=== PATIENT | female | born 1980 | race Caucasian/White ===

== ENCOUNTER 2016-10-16 08:50 | Inpatient (IN) ==
[2016-12-14] MEDS ORDERED: BUPIVACAINE 0.5%/EPI 1:200,000 INJ 30ml SDV ID ONE (09:57)
[2016-12-14] MEDS ORDERED: BUPIVACAINE 0.5%/EPI 1:200,000 INJ 30ml SDV ONE (09:59)
--- OUTSIDE RECORDS SUMMARY | 2016-12-14 10:14 | External Medical Summary | Referral Summary ---
:1980 Author Organization [facility], [facility] Care Address [address] [place] [address] [place] [id number] Care Team Providers Name Role Phone Wilian Perez Primary Care Physician Encounter VC Date(s): 01/23/15 - 01/23/15 [facility], [address] [place] [phone] Discharge Diagnosis: Cerumen impaction Discharge Diagnosis: Acne rosacea Discharge Disposition: 01-Home or Self Care Attending Physician: Donavan Song MD Admitting Physician: Donavan Song MD Vital Signs Most recent to oldest [Reference Range]: 1 Temperature Tympanic [36.6-38.1 degC] 35.9 degC *LOW* (01/23/15 8:20 AM) Peripheral Pulse Rate [60-100 bpm] 92 bpm (01/23/15 8:20 AM) Blood Pressure [90-140/60-90 mmHg] 128/72 mmHg (01/23/15 8:20 AM) Problem List Condition Effective Dates Status Health Status Informant Obesity(Confirmed) Active patient Allergies, Adverse Reactions, Alerts No data available for this section Medications MetroCream 0.75% topical cream 1 jaci, Topical, BID, # 45 g, 0 Refill(s), Pharmacy: [facility] [id number] Start Date: 01/23/15 Status: Orderedphentermine 15 mg oral capsule mg caps, Oral, Daily, 0 Refill(s) Start Date: 01/23/15 Status: Ordered Results No data available for this section Immunizations No data available for this section Procedures No data available for this section Social History Social History Type Response Smoking Status Never smoker Assessment and Plan Extracted from: Title: Ambulatory Patient Education Author: Donavan Song MD Date: ENT Cerumen Impaction A cerumen impaction is when the wax in your ear forms a plug. This plug usually causes reduced hearing. Sometimes it also causes an earache or dizziness. Removing a cerumen impaction can be difficult an d painful. The wax sticks to the ear canal. The canal is sensitive and bleeds easily. If you try to remove a heavy wax buildup with a cotton tipped swab, you may push it in further. Irrigation with water, suction, and small ear curettes may be used to clear out the wax. If the impaction is fixed to the skin in the ear canal, ear drops may be needed for a few days to loosen the wax. People who build up a lot of wax frequently can use ear wax removal products available in your local drugstore. SEEK MEDICAL CARE IF: You develop an earache, increased hearing loss, or marked dizziness. Document Released: 04/05/2005 Document Revised: 05/20/2012 Document Reviewed: 05/26/2010 ExitCare Patient Information 2015 [email or web address]. This information is not intended to replace advice given to you by your health care provider. Make sure you discuss any questions you have with your health care provider. Follow Up With: Where: When: Wilian Perez Within 3 to 5 days, only if needed Comments: Extracted from: Title: Office Visit Note Author: Donavan Song MD Date: 01/23/15 Assessment/Plan Acne rosacea She will be given a refill on her MetroCream 0.75 percent applied twice daily as needed. Cerumen impaction This will be lavaged out today. Orders: metroNIDAZOLE topical, 1 jaci, Topical, BID, # 45 g, 0 Refill(s), Pharmacy: [facility] [id number]
--- OUTSIDE RECORDS SUMMARY | 2016-12-14 10:14 | External Medical Summary | Continuity of Care Document ---
:1980 Author Organization [facility] Allergies Active Description Code Type Severity Reaction Onset Reported/ Identified Relationship Clinical to Patient Status Yes No Known 04190 3 N/A N/A Drug 0 Allergies Medications Medication Packaging Start Date Stop Date Route Dosage Sig Dose Pack 06/09/2015 07/06/2015 AMETHIA take 1 by Oral route every day Tablet 07/07/2015 07/31/2015 CLOMIPHENE CITRATE take 1 tablet by ORAL route every day days 3-7 of cycle Tablet 09/14/2015 CLOMIPHENE CITRATE take 1 tablet by ORAL route every day days 3-7 of cycle Problems Date Dx Coded Attending Type Code Diagnosis Diagnosed By 06/14/2015 Katelin Burgos N92.6 Irregular Menses Procedures Results Encounters ACCT No. Visit Discharge Status Pt. Type Provider Facility Loc./Unit Complaint Date/Time [id number] 03/14/2016 03/14/2016 [facility], 08:14:00 23:59:59 Tanya Moe [id number] 09/14/2015 09/14/2015 [facility], 09:27:00 23:59:59 Katelin L [id number] 08/13/2015 08/13/2015 [facility] Outpatient [facility], 14:54:00 23:59:59 Katelin L [id number] 07/19/2015 07/19/2015 [facility] Outpatient [facility], 08:28:00 23:59:59 Katelin L [id number] 07/07/2015 07/07/2015 [facility] Outpatient [facility], 08:28:00 23:59:59 Katelin L [id number] 07/06/2015 07/06/2015 [facility] Outpatient [facility], 15:25:00 23:59:59 Katelin L [id number] 06/14/2015 06/14/2015 [facility] Outpatient [facility], 11:41:00 23:59:59 Katelin L [id number] 06/09/2015 06/09/2015 [facility] Outpatient [facility], 09:55:00 23:59:59 Tanya Moe [id number] 06/03/2015 06/03/2015 CLS Outpatient [facility], 11:26:00 23:59:59 Katelin Phelps [id number] 01/18/2015 01/18/2015 CLS Outpatient Lexi, 10:05:00 23:59:59 Mia Castillo
--- OUTSIDE RECORDS SUMMARY | 2016-12-14 10:14 | External Medical Summary | Referral Summary ---
:1980 Author Organization [facility], [facility]mediate Care Address [address] [place] [address] [place] [address] Care Team Providers Name Role Phone Wilian Perez Primary Care Physician Encounter VC Date(s): 05/27/15 - 05/27/15 [facility], [address] [place] [phone] [place] Discharge Disposition: 01-Home or Self Care Attending Physician: Devonte Merlos MD Admitting Physician: Devonte Merlos MD Vital Signs Most recent to oldest [Reference Range]: 1 Temperature Tympanic [36.6-38.1 degC] 36.5 degC *LOW* (05/27/15 5:30 PM) Peripheral Pulse Rate [60-100 bpm] 90 bpm (05/27/15 5:30 PM) Blood Pressure [90-140/60-90 mmHg] 124/88 mmHg (05/27/15 5:30 PM) SpO2 97 % (05/27/15 5:30 PM) Problem List Condition Effective Dates Status Health Status Informant Obesity(Confirmed) Active patient Allergies, Adverse Reactions, Alerts No Known Allergies Medications MetroCream 0.75% topical cream 1 jaci, Topical, BID, # 45 g, 0 Refill(s), Pharmacy: [facility] [id number] Start Date: 01/23/15 Status: Ordered Results No data available for this section Immunizations No data available for this section Procedures No data available for this section Social History Social History Type Response Smoking Status Never smoker Assessment and Plan Extracted from: Title: Ambulatory Patient Education Author: Devonte Merlos MD Date: 05/27/15 Family Medicine Pharyngitis Pharyngitis is redness, pain, and swelling (inflammation) of your pharynx. CAUSES Pharyngitis is usually caused by infection. Most of the time, these infections are from viruses (viral) and are part of a cold. However, sometimes pharyngitis is caused by bacteria (bacterial). Pharyngi tis can also be caused by allergies. Viral pharyngitis may be spread from person to person by coughing, sneezing, and personal items or utensils (cups, forks, spoons, toothbrushes). Bacterial pharyngiti s may be spread from person to person by more intimate contact, such as kissing. SIGNS AND SYMPTOMS Symptoms of pharyngitis include: Sore throat. Tiredness (fatigue). Low-grade fever. Headache. Joint pain and muscle aches. Skin rashes. Swollen lymph nodes. Plaque-like film on throat or tonsils (often seen with bacterial pharyngitis). DIAGNOSIS Your health care provider will ask you questions about your illness and your symptoms. Your medical history, along with a physical exam, is often all that is needed to diagnose pharyngitis. Sometimes, a rapid strep test is done. Other lab tests may also be done, depending on the suspected cause. TREATMENT Viral pharyngitis will usually get better in 34 days without the use of medicine. Bacterial pharyngitis is treated with medicines that kill germs ( antibiotics). HOME CARE INSTRUCTIONS Drink enough water and fluids to keep your urine clear or pale yellow. Only take [id number] or prescription medicines as directed by your health care provider: If you are prescribed antibiotics, make sure you finish them even if you start to feel better. Do not take aspirin. Get lots of rest. Gargle with 8 oz of salt water ( tsp of salt per 1 qt of water) as often as every 12 hours to soothe your throat. Throat lozenges (if you are not at risk for choking) or sprays may be used to soothe your throat. SEEK MEDICAL CARE IF: You have large, tender lumps in your neck. You have a rash. You cough up green, yellow-brown, or bloody spit. SEEK IMMEDIATE MEDICAL CARE IF: Your neck becomes stiff. You drool or are unable to swallow liquids. You vomit or are unable to keep medicines or liquids down. You have severe pain that does not go away with the use of recommended medicines. You have trouble breathing (not caused by a stuffy nose). MAKE SURE YOU: Understand these instructions. Will watch your condition. Will get help right away if you are not doing well or get worse. This information is not intended to replace advice given to you by your health care provider. Make sure you discuss any questions you have with your health care provider. Document Released: 02/26/2006 Document Revised: 12/17/2013 Document Reviewed: 11/03/2013 [facility] Patient Information 2015 [employer] [facility]. No follow up information was provided. Extracted from: Title: viral sinusitis, pharyngitis Author: Devonte Merlos MD Date: 05/27/15 Impression and Plan Diagnosis Acute pansinusitis (FKW97-AN J01.40, Working, Medical). Acute pharyngitis (NPE85-RT J02.9, Working, Medical). Plan: 1) Rest and humidity are the main treatment. 2) May use OTC meds as needed for comfort. 3) Followup as needed. 4) No antibiotics are needed for this viral illness.. Orders Orders (Selected) Outpatient Orders Ordered Office Visit Level 3 Est 84693: . Dx/Order Association Plan: Diagnosis: Acute pansinusitis Comment: Ordered: Office Visit Level 3 Est 32690; 05/27/15 17:43:00 CDT, Acute pansinusitis | Acute pharyngitis Diagnosis: Acute pharyngitis Comment: Ordered: Office Visit Level 3 Est 50562; 05/27/15 17:43:00 CDT, Acute pansinusitis | Acute pharyngitis End of Orders ."
[2016-12-14 10:16] VITALS: BMI 33.8
[2016-12-14] MEDS: LR 1,000 ML IV SCH ×2 (10:35→15:26)
[2016-12-14] MEDS ORDERED: NS 1,000 ML IV SCH ×2 (10:45→18:46)
[2016-12-14] MEDS ORDERED: FentaNYL 250 MCG/5 ML INJECTION ONE (11:47)
[2016-12-14] MEDS ORDERED: ROCURONIUM 50 MG/5 ML INJECTION IVP ONE (12:43)
[2016-12-14] MEDS ORDERED: LIDOCAINE 2% (100mg/5mL) PF 5ml vl ONE (12:43)
[2016-12-14] MEDS ORDERED: PROPOFOL 20 ML ONE (12:43)
[2016-12-14] MEDS ORDERED: ONDANSETRON 4 MG/2 ML INJECTION ONE (12:44)
[2016-12-14] MEDS ORDERED: DiphenhydrAMINE 50 MG/ML INJECTION ONE (12:44)
[2016-12-14] MEDS ORDERED: DEXAMETHASONE 4 MG/ML INJECTION ONE (12:44)
[2016-12-14] MEDS ORDERED: HYDROMORPHONE 2 MG/ML INJECTION ONE (12:55)
[2016-12-14] MEDS ORDERED: FentaNYL 100 MCG/2 ML INJECTION ONE ×2 (15:36→16:01)
[2016-12-14] MEDS: INDOCYANINE GREEN 25mg INJECTION INJ ONE (15:38)
[2016-12-14] MEDS ORDERED: INDOCYANINE GREEN 25mg INJECTION ONE (15:39)
[2016-12-14] MEDS ORDERED: DESFLURANE 240ml LIQUID IH ONE (16:19)
[2016-12-14] MEDS ORDERED: LIDOCAINE 1% (10mg/ml) 2mL INJ PF SDV ID ONE (16:21)
[2016-12-14] MEDS ORDERED: ERTAPENEM 1 G in NS 100 ML IV ONE (16:25)
[2016-12-14] MEDS ORDERED: HEPARIN 5,000unit/ml 1ml INJECTION SUB-Q ONE (16:25)
[2016-12-14] MEDS ORDERED: METOPROLOL 5mg/5ml INJECTION IVP ONE (16:32)
--- NOTE | 2016-12-14 17:30 | General Surgery Procedure Note ---
Date of Procedure: 12/14/16 Surgeon: Sulma Farebox Repairer: Raúl Horowitz APRN Postoperative Diagnosis: Recurrent Diverticulitis Procedure: Robot assisted laparoscopic sigmoid resection. Estimated Blood Loss: See Anesthesia Record.
[2016-12-14] MEDS: HYDROMORPHONE 2 MG/ML INJECTION IVP PRN ×4 (17:52→18:22)
[2016-12-14] MEDS ORDERED: ONDANSETRON 4 MG/2 ML INJECTION IVP PRN (17:56)
--- NOTE | 2016-12-14 18:05 | Anesthesia Postoperative Note ---
- Date and Time Date: 12/14/16 Time: 18:05 - Status Patient Participated in Evaluation: Patient Participated in Person Vital Signs: Temperature 97.6 F 12/14/16 17:27 Pulse Rate 96 12/14/16 17:35 Respiratory Rate 17 12/14/16 17:35 Blood Pressure 114/66 12/14/16 17:35 Pulse Oximetry 95 12/14/16 17:35 Respiratory Function: Airway Patent Cardiovascular Function: Regular Pulse EKG: Sinus Rhythm Mental Status: Alert and Oriented Pain Intensity: 8 Hydration: IV Infusing, Nausea Complications During Recover: None Apparent - Follow-Up Instructions Instructions: Per Surgeon
[2016-12-14] MEDS ORDERED: HYDROMORPHONE PCA 30mg/30ml VIAL IV PRN (18:46)
[2016-12-14] MEDS ORDERED: MORPHINE SULFATE 4mg INJECTION IVP PRN (18:46)
[2016-12-14] MEDS: ONDANSETRON 4 MG/2 ML INJECTION IVP PRN (19:55)
[2016-12-14] MEDS: QUETIAPINE 25 MG TABLET PO SCH (21:12)
[2016-12-14] MEDS: D5-1/2NS with KCL 20mEq 1,000 ML IV SCH (23:08)
[2016-12-14] MEDS: METOCLOPRAMIDE 10mg/2ml INJECTION IVP PRN (23:12)
[2016-12-15] MEDS: ONDANSETRON 4 MG/2 ML INJECTION IVP PRN ×3 (03:28→21:56)
--- NOTE | 2016-12-15 06:40 | Anesthesia Preoperative Report ---
Anesthesia Preoperative Record - Date and Time Date: 12/14/16 Preoperative Diagnosis: robotic sigmoid resection Z87.19 Proposed Procedure: Cysto with lighted stent placement/ Robotic assisted sigmoid colectomy NPO Since Date: 12/14/16 NPO Since Time: 00:00 Allergies/Adverse Reactions: Allergies Allergy/AdvReac Type Severity Reaction Status Date / Time No Known Allergies Allergy Verified 12/14/16 10:12 - Vital Signs Vital Signs: Temperature 98.8 F 12/15/16 04:00 Pulse Rate 86 12/15/16 06:00 Respiratory Rate 20 12/15/16 06:00 Blood Pressure 111/63 12/15/16 06:00 Pulse Oximetry 94 12/15/16 06:00 Height and Weight: Height 5 ft 8 in Weight 101 kg Body Mass Index 33.8 - Medications Inpatient Medications: Current Medications Hydrocodone Bitart/Acetaminophen (Odin 5/325) 1 - 2 tab PO Q5H PRN PRN Reason: Pain Enoxaparin Sodium (Lovenox) 40 mg SQ DAILY MICHAEL Hydromorphone HCl (Dilaudid Certified Low Vision Therapist) 30 mg IV PRN PRN; Protocol PRN Reason: Protocol Last Admin: 12/14/16 19:43 Dose: 30 mg Potassium Chloride/Dextrose/Sod Cl (D5-1/2ns With Kcl 20meq) 1,000 mls @ 125 mls/hr IV .Q8H MICHAEL Last Infusion: 12/15/16 06:00 Dose: 125 mls/hr Ketorolac Tromethamine (Toradol Inj) 30 mg IVP Q6H PRN PRN Reason: Pain Metoclopramide HCl (Reglan) 10 mg IVP Q6H PRN PRN Reason: Nausea &/or vomiting Last Admin: 12/14/16 23:12 Dose: 10 mg Morphine Sulfate (Morphine Sulfate Inj) 1 - 2 mg IVP Q1H PRN PRN Reason: Pain Last Admin: 12/15/16 03:18 Dose: 2 mg Non-Formulary Medication (L-Norgest/E.Estradiol-E.Estrad [Camrese Lo Tablet]) 1 tab PO DAILY MICHAEL Ondansetron HCl (Zofran) 4 mg IVP Q6H PRN PRN Reason: Nausea &/or vomiting Last Admin: 12/15/16 03:28 Dose: 4 mg Pantoprazole Sodium (Protonix Iv) 40 mg IVP DAILY [facility] Quetiapine Fumarate (Seroquel) 25 mg PO HS [facility] Last Admin: 12/14/16 21:12 Dose: Not Given Home Medications: Home Medications Medication Instructions Recorded Confirmed Type Atorvastatin Calcium 1 tab PO HS #0 tab 04/10/16 12/14/16 History Quetiapine Fumarate [Seroquel] 25 mg PO HS #0 tab 04/10/16 12/14/16 History l-Norgest/E.estradiol-E.estrad 1 tab PO DAILY #0 04/10/16 12/14/16 History [Camrese Lo Tablet] Dapsone [Aczone] 30 gm TP HS 12/13/16 12/14/16 History HydroCHLOROthiazide [Microzide] 1 cap PO PRN PRN 12/13/16 12/14/16 History Is Patient on Beta Rachid?: No - Medical History Respiratory: DENIES: Asthma, Bronchitis, Chronic Obstructive Pulmonary Disease (COPD), Dyspnea, Orthopnea, Pulmonary Embolism, Pneumonia, Upper Respiratory Infection, Pulmonary Edema, Sleep Apnea, Tuberculosis, Other Cardiovascular: Reports: Hypertension, High Cholesterol Gastrointestional: Reports: Morbid Obesity Neuro/Musculoskeletal: Denies: HX.MS.OSAR, Back Problems, Cerebrovascular Accident, Depression, Headaches, Loss of Consciousness, Muscle Weakness, Neuromuscular Disorder, Paralysis, Paresthesia, Syncope, Seizures, Other Renal/Endocrine: DENIES: Diabetes Mellitus Type 1, Diabetes Mellitus Type 2, Renal Failure, Dialysis, Thyroid Disease, Weight Loss, Weight Gain, Other Other History: DENIES: Anesthesia Reactions, Now, Blood Transfusions, Chemotherapy , Cancer, Hemophilia, Malignant Hyperthermia, Sickle Cell Disease, Other - Surgical History HEENT Surgeries: Reports: Eye Surgery (LASIK), Tonsillectomy (T&A) GI Surgery/Treatments: Reports: Colonoscopy Reproductive Surgery/Treatment: Reports: Salpingectomy Anesthesia Reactions: Nausea and Vomiting Hx Family Anesthesia Reaction: No History of Motion Sickness: Yes - Social History Smoking Status: Never smoker Substance Use Type: does not use - Pertinent Findings Laboratory: CBC and BMP 12/15/16 05:11 12/15/16 05:10 BMP 12/14/16 12/15/16 10:20 05:10 Sodium 143 141 Potassium 4.2 4.5 Chloride 104 107 Carbon Dioxide 24 22 BUN 10.0 8.0 Creatinine 0.9 0.8 Glucose 90 170 H Calcium 10.0 8.3 L D EKG: Sinus Rhythm - Physical Exam Respiratory Exam: Present: lungs clear, bilateral breath sounds equal Cardiovascular Exam: Present: regular rate and rhythm, no murmur - Airway Assessment Mallampati Score: III TMD: 2 Fingerbreadths Neck Extension: fair Overall Assessment: may be difficult intubation - ASA ASA Score: 2 - Plan Anesthesia: General Inhalation Gases - Discussion Discussion: Discussed risks/options/alternatives of anesthesia and questions answered. Patient consents. Nursing pain assessment noted. Present for Discussion: family member Attestation Statement: Prior to the delivery of any anesthetic medication, I examined the patient, developed the plan, obtained the patient's consent and discussed the risk and benefits of the procedure with the patient/guardian. - Additional Information Seen by Anesthesia: Yes
[2016-12-15] MEDS: D5-1/2NS with KCL 20mEq 1,000 ML IV SCH ×2 (07:43→15:34)
[2016-12-15] MEDS: KETOROLAC 30 MG/ML INJECTION IVP PRN ×2 (08:35→16:50)
[2016-12-15] MEDS: PANTOPRAZOLE 40 MG INJECTION IVP SCH (08:36)
--- NOTE | 2016-12-15 09:05 | Operative Note ---
DATE OF SERVICE 12/14/2016 SURGEON Cy Ozuna MD POLL WATCHER Raúl Horowitz APRN PREOPERATIVE DIAGNOSIS Personal history for recurrent diverticulitis. POSTOPERATIVE DIAGNOSIS Personal history for recurrent diverticulitis. PROCEDURE Robotic assisted sigmoid resection with coloproctostomy. ANESTHESIA General endotracheal EBL AND FLUIDS Please see chart. BRIEF HISTORY/INDICATIONS Mrs. Lozada is a 36-year-old female who, despite her young age, has had multiple bouts of diverticulitis. Patient has seen Gastroenterology in the past as a result of her multiple bouts of recurrent diverticulitis. Gastroenterology felt that the patient would benefit from sigmoid resection as a result of her young age and the fact that she has experienced multiple bouts of diverticulitis. I saw the patient several months ago and her surgery was delayed as a result of an upcoming vacation. The patient shared with me this morning that she had a "another bout of diverticulitis" in October of this year requiring additional antibiotics. For completeness please refer to notes included in the patient's chart. FINDINGS Upon laparoscopy, the liver edge was smooth and without nodularities. Small bowel, omentum, peritoneal surfaces which were visualized were within normal limits. Colon was inspected and one could see prior inflammatory changes involving the sigmoid colon. There was a portion of the sigmoid colon that was somewhat adherent along the left lateral abdominal wall as a result of her prior bouts of diverticulitis. Mid descending colon was without visible abnormalities as well as the splenic flexure region. A standard sigmoid resection was completed without incident with subsequent anastomosis/ coloproctostomy. DESCRIPTION OF PROCEDURE After informed consent was obtained, the patient was brought to the operative suite, placed on the table in supine fashion. The abdomen was then prepped and draped in sterile fashion. Formal time-out was then completed. 0.25% Marcaine with epinephrine was injected just beneath the left subcostal margin. A 4-5 mm incision was made through the area of analgesia. Veress needle was then introduced through this incision and into the peritoneal cavity. Pneumoperitoneum was established to a patient pressure of 15 mmHg utilizing carbon dioxide. Additional 0.25% Marcaine with epinephrine was placed about 5 cm cephalad to the umbilicus as well as about 4-5 cm to the right of midline. A 1.5 cm incision was then made overlying the area of analgesia. A 12 mm camera port was placed at this location. Laparoscope was then inserted in the peritoneal cavity. One could then see the Veress needle coursing through the anterior abdominal wall. Veress needle was removed. The patient was then placed in Trendelenburg position and rotated towards her right. The operative bed was also slightly flexed. Next a 15 mm stapler port was then placed about three fingerbreadths medial to the right anterior iliac spine. Two additional 8 mm da Han ports were then placed within the left upper quadrant about the midclavicular line and 2 cm beneath the subcostal margin. Additional 8 mm port was then placed within the left upper quadrant along the lateral abdominal wall. Lastly, a 5 mm assist port was also placed along the right lateral abdominal wall. Each port site was preinjected with 0.25% Marcaine with epinephrine and placed under direct visualization. Next the small bowel was swept out of the pelvic region and into the patient's right upper quadrant. Omentum was also grasped and brought forth up into the epigastric region. This was done utilizing a Wavy grasper and holding the da Han camera. Once appropriate visualization had been obtained, the abdominal cavity was further explored via the laparoscope. Findings were noted as above. Next, the robot was then docked overlying the patient's left hip at a 45 degree angle. A Graptor retractor was placed in robotic arm #3 through the port along the left lateral abdominal wall. Fenestrated bipolar grasper was placed in robotic arm # 2 within the left subcostal region. Hook cautery was placed through robotic arm #1 within the right lower quadrant. The mesentery was then placed under tension by grabbing the sigmoid colon and retracting it anteriorly. First, the mesentery at the sacral promontory was excised out laterally. Bilateral ureteral stents were placed and one could clearly see the anatomic location of the right ureter. Dissection was began medial to the ureter itself. Presacral space was identified and the presacral space was continued to be dissected out slightly in a cephalad fashion but mostly caudally. The mesorectum that was left was gently retracted anteriorly and the presacral space was developed in a tissue plane from the right medially and then to the left. The left iliac vessels were identified as the mesorectum was continued to be divided under direct visualization. Dissection was continued until one began to be able to see the light from the lighted ureteral stent that had also been placed within the left ureter. Next attention was then focused towards the left pericolic gutter. One could see prior inflammatory changes involving the sigmoid colon overlying the anatomic location of the iliac vessels. There was a fair amount of adhesions between the sigmoid colon and the lateral abdominal wall and the iliac vessels. White line of Toldt was incised and the left colon was able to be reflected medially. The lighted ureteral stent made the dissection significantly easier for one could see the anatomic location of the left ureter as the sigmoid colon was reflected medially. Dissection was somewhat difficult as a result of the inflammatory changes and the process did take a fair amount of time at this site. Eventually the tissue plane that had been created from the right mesorectum was entered from the left. Now the mesorectum had been completely dissected out circumferentially at the rectosigmoid junction. White line of Toldt was then continued to be incised along the left pericolic gutter towards the splenic flexure. I was able to reach the splenic flexure with the robot docked as stated above. A portion of the splenic flexure was able to be taken down. The renal colic and splenocolic ligaments were divided, further mobilizing the splenic flexure. The gastrocolic ligament, however, was not needed to be divided for this did result in further mobilization of the splenic flexure as discussed above. Next, attention was then focused towards the mesorectum at the rectosigmoid junction. Mesorectum was divided with Vessel Sealer under direct visualization to the rectosigmoid junction. A da Han linear stapler was then placed across the rectum just below the rectosigmoid junction and fired. Two firings were required to completely transverse the rectum. At this juncture in time, the rectum had been completely divided as well as the mesentery to the rectosigmoid junction. Attention then focused towards ascertaining the proximal resection line. The mid descending colon was grasped and was able to be brought forth now into the pelvis without undue tension. The mesentery at this location that had been ascertained was then divided under direct visualization utilizing the Vessel Sealer. Dissection was carried down towards the sacral promontory and the main vascular pedicle/ superior hemorrhoidal vessels were identified and dissected out circumferentially. Artery and vein were from one another and Hem-o- issa clips were placed upon the artery and vein proximally. The vessels were then divided distally utilizing the Vessel Sealer. No bleeding occurred. At this time, the mesentery to the sigmoid colon and the proximal rectum had been completely divided. I then asked Anesthesia to administer 3 mL of ICG intravenously. Utilizing Firefly fluorescence, the remaining rectal stump was inspected and found to fluoresce quite well to the prior staple line. The descending colon also fluoresced well to just beyond the proposed resection line that had been created the by division of the mesentery to the mid descending colon. Next the robotic instruments were removed and the robot was undocked. The patient was rotated back towards her left. A small 6 cm Pfannenstiel incision was then made about 3-4 fingerbreadths above the pubic symphysis. 0.25% Marcaine with epinephrine was injected at this location followed by a 6 cm incision. Dissection was then carried down to the deep subcutaneous tissues and underlying fascia. Anterior rectus sheath was then opened transversely. Next the peritoneum between the rectus muscles were then opened with electrocautery. Access to the peritoneum was now obtained. An Tres wound retractor was then placed through this small Pfannenstiel incision. The distal staple line was grasped at the rectosigmoid junction and the sigmoid colon was now brought forth up through the Tres wound retractor. One could see the mesentery that had been divided up to the mid descending colon. There was still a small amount of mesentery remaining adjacent to the colon at this location. The remaining omentum was then divided between right angle clamps and ligated with 3-0 and 0 Vicryl ties. Now an [facility] clamp was then placed across the mid descending colon and clamped. The colon was then transected just proximal to the [facility] clamp. Allis clamps were placed upon the transected end of the colon. The transected end of the colon did bleed briskly indicative of adequate blood supply. A 28 mm EEA sizer was then placed within the transected end of the colon without difficulty. A 29 mm EEA stapler was then obtained. The anvil portion of the stapler was then placed through the transected end of the colon. Pursestring suture of 2-0 Prolene was then placed at the transected end of the colon and secured resulting in a nice imbrication of the colonic mucosa to the anvil itself. The anvil was returned back into the peritoneal cavity through the Tres wound retractor. The "lid portion" of the Tres wound retractor was then placed and the pneumoperitoneum was then reestablished. The da Han laparoscope was then placed back through the camera port. Next I had my operational assistant then advance the 29 mm EEA stapler through the anal verge and continue to advance the stapler until the stapler was adjacent to the staple line involving the rectum. Trocar portion of the stapler was allowed to exit just posterior to the staple line within its midportion. Next the anvil portion was then grasped laparoscopically and secured to the trocar portion of the stapler and the stapler was then tightened to the appropriate tension. Care was taken to make sure that the mesentery to the remaining descending colon had not been "twisted" upon itself. Stapler was then fired. Stapler was then released and removed from the anus. Two complete doughnuts were present within the EEA stapler. There did not appear to be any tension upon the anastomosis. Saline was then placed within the pelvis and my operational assistant then placed a rigid proctoscope into the anal verge and a Wavy grasper was utilized to occlude the remaining descending colon proximal to the anastomosis. The anastomosis and rectum were then insufflated with air beneath the saline. At no point in time could one see any bubbles coming forth through the saline, indicative of an airtight anastomosis. Irrigation was then suctioned until clear. Prior areas of dissection were inspected and found to be hemostatic in nature. The 15 mm stapler port was then removed from the right lower quadrant under direct visualization. The fascia at this location was then closed, utilizing a laparoscopic suture passer and 0 Vicryl suture in a [id number] fashion. Ports were removed under direct visualization as well as the Tres wound retractor within the Pfannenstiel incision. The fascia at the camera port site was then closed in a [id number] fashion with 0 Vicryl. The fascia at the Pfannenstiel incision was closed in two-layer fashion. First the peritoneum and posterior rectus sheath was closed in a running fashion with #1 PDS. The anterior rectus sheath was then closed transversely also in a running fashion with #1 PDS. All skin incisions were then closed with lilo. Prior to closure, the Pfannenstiel incision had additional Marcaine injected at the fascial level for postoperative pain control. Once all incisions had been closed, the patient was awakened from her anesthetic and will be sent to the ICU once deemed in stable condition. Additionally, it should be noted that Raúl Horowitz APRN, was present throughout the entire case and played a pivotal role in providing assistance and exposure during the course of the procedure. MAAME
[2016-12-15] MEDS: [UNRECOGNIZED DRUG - OTHER] PO SCH ×2 (10:30→22:05)
[2016-12-15] MEDS: E ESTRADIOL E ESTRAD PO SCH ×2 (10:30→22:05)
[2016-12-15] MEDS: NORGEST PO SCH ×2 (10:30→22:05)
[2016-12-15] MEDS: INDOCYANINE GREEN 25mg INJECTION INJ ONE (10:32)
--- NOTE | 2016-12-15 11:01 | Progress Note ---
DATE 12/15/2016 FINDINGS Eleanor this morning is sitting upright in the chair. She states that she is having very little incisional discomfort. Patient states that overall she is feeling pretty well. OBJECTIVE VITALS: Temperature 98.8, pulse 80, respirations 15, blood pressure 110/66, SaO2 92% on room air. CHEST: Clear to auscultation bilaterally. HEART: Regular rate and rhythm. Normal S1, S2, without gallops, murmurs or clicks. ABDOMEN: Palpation of the abdomen reveals it to be soft with only minimal incisional tenderness being noted within the lower Pfannenstiel incision. No evidence for guarding or rebound. LABORATORY/RADIOGRAPHIC EVALUATION The patient had a CBC today and her white count is slightly elevated at 15.2, most likely as a result of stress from surgery. Hemoglobin is decreased slightly at 11.6. BMP obtained and found to be essentially within normal limits. ASSESSMENT 36-year-old female status post robotic assisted laparoscopic sigmoid resection secondary to recurrent diverticulitis. Patient doing well. PLAN Will begin on full liquids. Will DC Espinal. Will likely transfer out to floor later today. I am pleased with the patient's appearance today on postop day #1. AMAME
[2016-12-15] MEDS: ENOXAPARIN 40 MG/0.4 ML INJECTION SQ SCH (11:21)
--- NOTE | 2016-12-15 14:13 | General Surgery Progress Note ---
Subjective Patient reports: pain is less, tolerating liquids well, no bowel movement, afebrile Narrative: She is using minimial Dilaudid TELECOMMUNICATIONS NETWORK ENGINEER. She would like to get rid of the nasal canula needed for the TELECOMMUNICATIONS NETWORK ENGINEER and prefers to call the nurse if pain med is needed. Denies nausea. Tolerating full liquids without difficulty. Belching but no flatus yet. - Vital Signs Last Vital Signs Temp 97.8 F 12/15/16 11:25 Pulse 79 12/15/16 12:00 Resp 24 12/15/16 12:37 BP 110/60 12/15/16 10:00 Pulse Ox 95 12/15/16 11:00 - Laboratory Result Diagrams: 12/15/16 05:11 12/15/16 05:10 - Normal Exam General: awake, alert, no acute distress Cardiovascular: regular rhythm, regular rate Respiratory: no labored breathing Abdominal: appropriately tender (abdomen and trocar sites) Assessment and Plan (1) History of colonic diverticulitis Current Visit: Yes Status: Resolved (2) Depression Current Visit: Yes Status: Chronic Qualifiers: Depression Type: unspecified Qualified Code(s): F32.9 - Major depressive disorder, single episode, unspecified (3) Obesity (BMI 30.0-34.9) Current Visit: Yes Status: Chronic Plan: POD #1 Doing well, minimall narcotic needed for pain control. No nausea. Tolerating full liquid diet. Espinal DC'd this am and voiding without difficulty. Will DC TELECOMMUNICATIONS NETWORK ENGINEER. Transfer to surgical floor. Advance to regular diet for breakfast tomorrow. Hospital Course Summary Disclaimer: The visit summary below is not to be considered part of the above Progress Note. Hospital Course: 12/15/16 14:15 POD #1 Doing well, minimall narcotic needed for pain control. No nausea. Tolerating full liquid diet. Espinal DC'd this am and voiding without difficulty. Will DC TELECOMMUNICATIONS NETWORK ENGINEER. Transfer to surgical floor. Advance to regular diet for breakfast tomorrow.
[2016-12-15] MEDS: NS 1,000 ML IV SCH (15:03)
[2016-12-15] MEDS: HYDROCODONE/APAP 5mg/325mg TABLET PO PRN (15:33)
[2016-12-15] MEDS: HYDROMORPHONE 2 MG/ML INJECTION IVP PRN ×2 (19:30→21:57)
[2016-12-15] MEDS: METOCLOPRAMIDE 10mg/2ml INJECTION IVP PRN (19:30)
[2016-12-15] MEDS: QUETIAPINE 25 MG TABLET PO SCH (22:05)
[2016-12-16] MEDS: NS 1,000 ML IV SCH ×3 (02:00→14:20)
[2016-12-16] MEDS: METOCLOPRAMIDE 10mg/2ml INJECTION IVP PRN (02:09)
[2016-12-16] MEDS: HYDROMORPHONE 2 MG/ML INJECTION IVP PRN (02:10)
[2016-12-16] MEDS: HYDROCODONE/APAP 5mg/325mg TABLET PO PRN ×4 (06:31→21:36)
[2016-12-16] MEDS: ENOXAPARIN 40 MG/0.4 ML INJECTION SQ SCH (08:31)
[2016-12-16] MEDS: PANTOPRAZOLE 40 MG INJECTION IVP SCH (08:32)
[2016-12-16] MEDS: NORGEST PO SCH (08:33)
[2016-12-16] MEDS: E ESTRADIOL E ESTRAD PO SCH (08:33)
[2016-12-16] MEDS: [UNRECOGNIZED DRUG - OTHER] PO SCH (08:33)
--- NOTE | 2016-12-16 09:34 | Discharge Instructions ---
Discharge Plan - Med Rec/Dispo Referrals/Follow Up: Cy Ozuna MD [Physician] - Additional Instructions: follow up in about 10-14 from day of surgery Prescriptions: New l-Norgest/E.estradiol-E.estrad [Camrese Lo Tablet] 1 tab PO DAILY Continue Quetiapine Fumarate [Seroquel] 25 mg PO HS #0 tab Atorvastatin Calcium 1 tab PO HS #0 tab HydroCHLOROthiazide [Microzide] 1 cap PO PRN PRN PRN Reason: Inflammation Dapsone [Aczone] 30 gm TP HS l-Norgest/E.estradiol-E.estrad [Camrese Lo Tablet] 1 tab PO DAILY #0 - Disposition 01 Discharged Home, Self-Care
--- NOTE | 2016-12-16 09:40 | Discharge Instructions ---
Discharge Plan - Med Rec/Dispo Referrals/Follow Up: Cy Ozuna MD [Physician] - Additional Instructions: follow up in about 10-14 from day of surgery Prescriptions: New Hydrocodone/APAP 5/325 [[place] 5/325] 1 - 2 tab PO Q5H PRN #20 tab PRN Reason: Pain l-Norgest/E.estradiol-E.estrad [Camrese Lo Tablet] 1 tab PO DAILY Continue Quetiapine Fumarate [Seroquel] 25 mg PO HS #0 tab Atorvastatin Calcium 1 tab PO HS #0 tab HydroCHLOROthiazide [Microzide] 1 cap PO PRN PRN PRN Reason: Inflammation Dapsone [Aczone] 30 gm TP HS l-Norgest/E.estradiol-E.estrad [Camrese Lo Tablet] 1 tab PO DAILY #0 - Disposition 01 Discharged Home, Self-Care
[2016-12-16] MEDS: QUETIAPINE 25 MG TABLET PO SCH (21:36)
[2016-12-17] MEDS: HYDROCODONE/APAP 5mg/325mg TABLET PO PRN ×3 (04:00→14:26)
[2016-12-17 07:38] VITALS: RESP 16
[2016-12-17] MEDS: E ESTRADIOL E ESTRAD PO SCH (08:53)
[2016-12-17] MEDS: NORGEST PO SCH (08:53)
[2016-12-17] MEDS: [UNRECOGNIZED DRUG - OTHER] PO SCH (08:53)
[2016-12-17] MEDS: ENOXAPARIN 40 MG/0.4 ML INJECTION SQ SCH (08:55)
[2016-12-17] MEDS: PANTOPRAZOLE 40 MG INJECTION IVP SCH (08:55)
[2016-12-17] MEDS: NS 1,000 ML IV SCH (10:04)
[2016-12-17 12:04] VITALS: BP 136/95; PULSE 91; TEMP 96.8; O2SAT 96
--- NOTE | 2016-12-18 11:47 | Operative Note ---
DATE OF SURGERY 12/14/2016 PREOPERATIVE DIAGNOSES 1. Diverticulosis. 2. Request for ureter catheters. POSTOPERATIVE DIAGNOSES 1. Diverticulosis. 2. Request for ureter catheters. PROCEDURE PERFORMED Cystoscopy with bilateral ureter catheter placement. SURGEON Naresh Alcazar MD INDICATION FOR THE PROCEDURE The patient is a 36-year-old female patient of Dr. Ozuna. She is having robotic diverticulectomy of her sigmoid colon. He has requested ureter catheters to help identify during the dissection. DESCRIPTION OF THE PROCEDURE She was taken back to the OR, placed under anesthesia and moved to the lithotomy position. Genitalia was prepped and draped. After a time-out, I passed a 22-British scope. The urethra was normal. The bladder was unremarkable. Ureters were in a normal location. I advanced a Sensor wire up the left ureter first. It went up easily. I slowly advanced an illuminated catheter. I passed it over the wire. It went up all the way with no resistance. I did the same thing on the right. Both ureter catheters advanced over a wire easily. I removed the scope, placed a Espinal catheter. I tied the stents to the catheter with some 0 silk. I then passed the center part of the illuminated stents up each ureter catheter. They went up easily. I _held?_ then completely and then they were hooked up to the illumination source. That was the end of my portion of the procedure. The ureter catheters will be removed at the end of the case. Catheter can be removed when it is no longer necessary. [facility]
--- NOTE | 2016-12-19 14:55 | Progress Note ---
DATE OF VISIT 12/17/2016 REASON FOR VISIT Covering surgical care for Dr. Ozuna. SUBJECTIVE Eleanor has done well overnight. She has tolerated a regular diet. She does feel like her pain is improving. OBJECTIVE VITALS: Afebrile with stable vitals on room air. GENERAL: The patient is awake and alert in no acute distress. ABDOMEN: Soft, appropriately tender. Her incisions were inspected and were clean, dry and intact. There was some minimal drainage on the dressing over her Pfannenstiel incision. ASSESSMENT Status post robotic assisted laparoscopic sigmoid resection for recurrent diverticulitis - doing well. PLAN 1. Dismiss home. 2. See discharge instructions. MTDD
== END 2016-12-17 14:40 | disposition home or self-care (01) | DRG 331 ==
LOC: SRG 12-14 10:04 → CCU 12-14 11:14 → SRG 12-14 13:33 → CCU 12-14 17:48 → SRG 12-15 17:08
PROVIDERS: ADMIT Surgery; ATTEND Surgery